=== PATIENT | male | born 1950 ===

== ENCOUNTER 2022-03-29 05:46 | Observation (INO) ==
[2022-03-29] MEDS ORDERED: Chlorhexidine MOUTHWASH 0.12% 15 ML UDC ONE (05:55)
[2022-03-29] MEDS ORDERED: Sodium Citrate/Citric Acid LIQ 15 ML UDC PO ONE (06:00)
[2022-03-29] MEDS ORDERED: Lactated Ringers 1000 ml BAG 1,000 ML IV SCH ×2 (06:00→10:00)
[2022-03-29] MEDS ORDERED: Buffered Lidocaine 1% SYRIN 1 ml INTRADERM ONE (06:00)
[2022-03-29] MEDS ORDERED: Clindamycin 900 MG/D5W BAG 900 MG/50 ML BAG IVPB ONE (06:12)
[2022-03-29] MEDS ORDERED: Sodium Citrate/Citric Acid LIQ 15 ML UDC ONE (06:12)
[2022-03-29] MEDS ORDERED: Thrombin 5,000 UNITS 1 APPLIC KIT - topical use - TOPICAL ONE (07:02)
[2022-03-29] MEDS ORDERED: fentaNYL 250 mcg/5 ml 50 MCG/ML 5 ml VIAL (250 MCG) ONE (07:03)
[2022-03-29] MEDS ORDERED: Gelfoam Sponge SIZE 100 SPONGE ONE (07:03)
[2022-03-29] MEDS ORDERED: Midazolam 2 mg/2 ml VIAL 1 mg/ml 2 ml VIAL (2 mg) ONE (07:03)
[2022-03-29] MEDS ORDERED: Rocuronium 50 mg VIAL 10 mg/ml 5 ml VIAL (50 mg) ONE (07:03)
[2022-03-29] MEDS ORDERED: ceFAZolin VIAL VIAL ONE (07:03)
[2022-03-29] MEDS ORDERED: Propofol 10 MG/ML 20 ML BTL ONE (07:06)
[2022-03-29] MEDS ORDERED: Lidocaine 2% PF 5 ML VIAL ONE (07:06)
[2022-03-29] MEDS ORDERED: Acetaminophen IV 1 GM/100ML 1,000 MG/100 ML BAG IV ONE (07:06)
[2022-03-29] MEDS ORDERED: Ondansetron 4 mg VIAL 2 MG/ML 2 ml VIAL ONE (07:06)
[2022-03-29] MEDS ORDERED: Sterile Water for Inj 10 ML ONE (07:06)
[2022-03-29] MEDS ORDERED: Phenylephrine IV 10 MG/ML 1 ml VIAL ONE (07:06)
[2022-03-29] MEDS ORDERED: Sevoflurane BOTTLE ONE (07:06)
[2022-03-29] MEDS ORDERED: Dexamethasone IV 4 MG/ML VIAL 1 ml VIAL ONE (07:06)
[2022-03-29] MEDS ORDERED: Lidocaine 1% VIAL 10 MG/ML VIAL 30 ML ONE (07:13)
[2022-03-29] MEDS ORDERED: HYDROmorphone 1 MG/1 ML SYRINGE IV PRN (08:16)
[2022-03-29] MEDS ORDERED: Naloxone 0.4 mg VIAL 0.4 mg/ml 1 ml VIAL IV PRN (08:16)
[2022-03-29] MEDS ORDERED: HYDROmorphone 0.5 MG/0.5 ML SYRINGE ONE (09:08)
[2022-03-29] MEDS ORDERED: Ondansetron 4 mg VIAL 2 MG/ML 2 ml VIAL IV PRN (09:30)
[2022-03-29] MEDS ORDERED: Magnesium Hydroxide LIQ 30 ML UDC PO PRN (09:30)
[2022-03-30 08:44] VITALS: BP 139/85
== END 2022-03-30 10:55 | disposition home or self-care (01) ==
LOC: SSU 05:46 → OR 05:46
PROVIDERS: ADMIT Neurological Surgery; ATTEND Neurological Surgery